=== PATIENT | male | born 1995 | race Caucasian/White ===

== ENCOUNTER 2022-01-29 16:26 | Outpatient (CLI) | payer BC, SELFPAY ==
[2022-01-29 18:33] LABS: Anion Gap 3 (5-15); BUN 10 mg/dL (7-18); BUN/Creat Ratio 9.5 RATIO (10-20); Calcium,Total 9.3 mg/dL (8.5-10.1); Chloride 107 mmol/L (98-107); Cholesterol 147 mg/dL (200); Creatinine, Serum 1.05 mg/dL (0.70-1.30); EST Glomerular Filtration Rate 90 mL/min (>60); Est Glom Filt Rate - Afr Amer 109 mL/min (>60); Glucose 96 mg/dL (74-106); High Density Lipoprotein 34 mg/dL; Potassium 3.9 mmol/L (3.5-5.1); Sodium Level 138 mmol/L (136-145); Triglycerides 207 mg/dL; Very Low Density Lipoprotein 41 mg/dL (5-40)
[2022-01-29 20:09] LABS: Chlamydia Trachomatis by PCR Negative (Negative)
[2022-01-29 20:10] LABS: Neisserai gonorrhoeae by PCR Negative (Negative); Probe Check PASS; Sample Adequacy Control PASS; Specimen Processing Control PASS
== END 2022-01-29 23:59 | disposition home or self-care (01) ==
LOC: MFPLAB 16:28
PROVIDERS: Visit Provider Family Medicine
DX: Z00.00 Encounter for general adult medical examination without abnormal findings (principal); R30.0 Dysuria
CPT/HCPCS: 36415; 80048; 80061; 87086; 87491; 87591

== ENCOUNTER 2022-06-27 19:06 | Emergency (ER) | payer OTHER, SELFPAY ==
[2022-06-27 19:07] VITALS: BP 125/80; PULSE 96; RESP 15; TEMP 37.3; O2SAT 100; BMI 27.7
--- NOTE | 2022-06-27 20:11 | RAD_ITS ---
STUDY: X-RAY CHEST REASON FOR EXAM: Male, 26 years old. Atypical chest pain + COVID TECHNIQUE: Single AP portable view of the chest. COMPARISON: None. FINDINGS: The lungs are clear and expanded. There is no demonstrated pleural abnormality. Normal size heart. Normal mediastinum and arturo. Normal visualized pulmonary arteries. Normal visualized aortic arch and descending thoracic aorta. Normal visualized thoracic spine. Normal visualized ribs, clavicles, and shoulders. There is no demonstrated abnormality of the visualized soft tissue structures of the upper abdomen. RAD/Chest 1 View (Portable) IMPRESSION: Normal x-ray examination of the chest. Electronically Signed: Seven Simmons MD at 20:36 EDT ,
[2022-06-27] MEDS: Ibuprofen 600 MG Tablet PO (20:16)
[2022-06-27] MEDS: Acetaminophen 325 MG Tablet 650 MG PO (20:16)
--- NOTE | 2022-06-27 21:29 | EX.ED.DYSGE1 ---
HPI History of Present Illness Chief Complaint: General Illness Informant: patient Narrative Narrative: Patient is a 26-year-old male with no significant past medical history presenting with myalgias, generalized malaise and chest discomfort. Patient states this morning he woke up and just aches in his bones, his muscles hurt, he has pain in his left upper/outer chest, chills, nausea and his tonsils feel swollen but are not hurting. He has a headache. He took Excedrin earlier this afternoon with no relief of his symptoms. Is not taking anything else. He states he felt fine yesterday. Denies any vomiting, diarrhea, abdominal pain or urinary symptoms. Denies any known sick contacts. No other complaints at this time. PFSH PFSH Allergy/AdvReac Type Severity Reaction Status Date / Time No Known Allergies Allergy Verified 06/27/22 19:10 Social History Smoking Status: Never smoker ROS ROS ED Constitutional Constitutional ED: Reports chills, fever(s) and subjective Eyes Eyes: Denies change in vision or diplopia ENT ENT ED: Reports sore throat; Denies ear pain or rhinorrhea Cardiovascular Cardiovascular: Reports chest pain; Denies palpitations Respiratory/Chest Respiratory/Chest: Reports cough; Denies dyspnea or dyspnea on exertion Gastrointestinal Gastrointestinal: Reports nausea; Denies abdominal pain, diarrhea or vomiting Genitourinary Genitourinary ED: Denies dysuria or hematuria Musculoskeletal Musculoskeletal: Reports arthralgias, back pain and myalgias Integumentary Denies rash Neurologic Neurologic: Reports headache(s); Denies paresthesias or weakness Psychiatric Psychiatric: Denies anxiety EXAM Physical Exam Const Vital Signs: 06/27/22 19:07 06/27/22 19:29 Temperature 99.1 F Temperature Source Temporal Pulse Rate 96 Respiratory Rate 15 Respiratory Effort Normal Non-Labored Respiratory Pattern Normal Blood Pressure 125/80 H Blood Pressure Mean 95 Pulse Ox 100 Oxygen Delivery Method Room Air Positive well nourished and well developed General Appearance ED: well developed and NAD HEENT Reports TM's clear and moist mucous membranes HEENT Narrative: Normal oropharynx Tympanic Membrane ED: Yes TM's clear Eyes PERRL and EOMs intact bilaterally Neck no lymphadenopathy and supple Neck Narrative: No meningeal signs Chest Wall inspection of chest normal Chest Narrative: Tenderness palpation of the left pectoralis major Resp normal respiratory effort and clear to auscultation bilaterally GI normal to inspection, nondistended, normoactive bowel sounds and non-tender Auscultation: normoactive bowel sounds Extremity normal to inspection General Extremety ED: Negative for edema or tenderness General Extremity: Negative for edema Neuro oriented x3, CN's II-XII intact bilaterally and no sensory deficits noted Motor Exam: general weakness Psych mental status grossly normal Skin no rashes or lesions noted and no wounds MDM MDM MDM Narrative Medical decision making narrative: Patient is evaluated for 1 day of viral symptoms. He appears nontoxic and in no acute distress but he does appear uncomfortable. His vital signs are normal. He has clear breath sounds. Physical exam is pretty benign. Her COVID test is positive. Chest x-ray obtained interpreted by myself as well as radiology does not show any acute process. I suspect his symptoms are all secondary to his viral syndrome. He is given Tylenol and Motrin in the ER. Is able to tolerate p.o. Will be discharged home with symptomatic treatment. Counseled on return precautions and drink lots of fluids. Discussed treatment with Paxlovid but patient declines. Radiography Diagnostic Testing: Clinical Impression(s) from Imaging Studies Chest X-Ray 06/27/22 20:11 IMPRESSION: Normal x-ray examination of the chest. Electronically Signed: Seven Simmons MD at 20:36 EDT Reading Location ID and State: [address] [place] [address] , Service support , Discharge Plan Triage Chief Complaint: General Illness ED Provider: Zee Gonsalez Dx/Rx/DC Orders Clinical Impression: COVID-19, Myalgia Instructions: Coronavirus Disease 2019 (COVID-19): Caring for Yourself or Others, ED Myalgias Stand Alone Forms: ED Work / School Excuse Primary Care Provider: Care Physician,No Primary Referrals: Lindy Bauer MD [Med Staff - Animal Cruelty Investigation Supervisor] - As Needed Care Physician,No Primary [Primary Care Provider] - Activity Restrictions/Additional Instructions: Drink lots of fluids. Alternate ibuprofen (600 mg) and Tylenol as needed for fever and body aches. Disposition Disposition: Home, Self Care
== END 2022-06-27 21:39 | disposition home or self-care (01) ==
PROVIDERS: Emergency Provider Emergency Medicine; Visit Provider Emergency Medicine
DX: U07.1 COVID-19 (principal); R07.9 Chest pain, unspecified; R11.0 Nausea
CPT/HCPCS: 71045; 87811; 99283